=== PATIENT | male | born 1965 | race African-American/Black ===

== ENCOUNTER 2022-11-27 20:00 | Emergency (ER) | payer OTHER ==
--- NOTE | 2022-11-27 20:06 | ED ---
Wound/Laceration HPI - General Source: patient, RN notes reviewed Mode of arrival: ambulatory Limitations: no limitations <Marquita Benitez - Last Filed: 11/27/22 20:04> <Wenceslao Garcia - Last Filed: 11/27/22 22:11> - General Chief Complaint: Wound/Laceration Stated Complaint: [facility] Time Seen by Provider: 11/27/22 20:03 - History of Present Illness Initial Comments: This is a 57 year old male who presents to the emergency department for a laceration to his left hand. States that he injured this on a machine at work earlier today. Unsure when his last tetanus vaccine was. (Marquita Benitez) Dictation was produced using [employer] dictation software. please excuse any grammatical, word or spelling errors. 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 He was using a device called a bun cutter. When he is using this device he accidentally cut his medial dorsal hand. Patient does not know when his last tetanus update was. Denies any dysfunction to his fingers. The ROS documented in this emergency department record has been reviewed and confirmed by me. Those systems with pertinent positive or negative responses have been documented in the HPI. All other systems are other negative and/or noncontributory. (Wenceslao Garcia) - Related Data Previous Rx's Medication Instructions Recorded Cephalexin [Keflex] 500 mg PO Q6HR 5 Days #20 cap 11/27/22 Allergies Allergy/AdvReac Type Severity Reaction Status Date / Time No Known Allergies Allergy Verified 11/27/22 20:07 Review of Systems ROS Other: All systems not noted in ROS Statement are negative. <Marquita Benitez - Last Filed: 11/27/22 20:04> ROS Other: All systems not noted in ROS Statement are negative. <Wenceslao Garcia - Last Filed: 11/27/22 22:11> ROS Statement: Those systems with pertinent positive or pertinent negative responses have been documented in the HPI. General Exam <Marquita Benitez - Last Filed: 11/27/22 20:04> <Wenceslao Garcia - Last Filed: 11/27/22 22:11> - General Exam Comments Initial Comments: Visual Physical Exam Vital signs reviewed General: Well-appearing, nontoxic, no acute distress. Head: Normocephalic, atraumatic Eyes: PERRLA, EOMI ENT: Airway patent Chest: Nonlabored breathing Skin: No visual rash, normal skin tone Neuro: Alert and oriented 3 Musculoskeletal: No gross abnormalities I performed the QuickNote portion of this chart. Signed Marquita Benitez PA-C. (Marquita Benitez) PHYSICAL EXAM: General Impression: Alert and oriented x3, not in acute distress HEENT: Normocephalic atraumatic, extra-ocular movements intact, pupils equal and reactive to light bilaterally, mucous membranes moist. Cardiovascular: Heart regular rate and rhythm Chest: Able to complete full sentences, no retractions, no tachypnea Motor: no focal deficits noted Neurological: CN II-XII grossly intact, no focal motor or sensory deficits noted Skin: Intact with no visualized rashes Psych: Normal affect and mood Left hand: 4 x 4 area laceration. Wound edges do not approximate very well. Exposed extensor tendon. Finger function is intact. (Wenceslao Garcia) Course Vital Signs 11/27/22 20:04 Temperature 97.9 F Pulse Rate 64 Respiratory 20 Rate Blood Pressure 173/118 O2 Sat by Pulse 100 Oximetry Medical Decision Making <Wenceslao Garcia - Last Filed: 11/27/22 22:11> - Medical Decision Making Was pt. sent in by a medical professional or institution ([facility], PULMONOLOGY PHYSICIAN, urgent care, hospital, or detention...) When possible be specific @ -No Did you speak to anyone other than the patient for history (EMS, parent, family, police, friend...)? What history was obtained from this source @ -No Did you review nursing and triage notes (agree or disagree)? Why? @ -I reviewed and agree with nursing and triage notes Were old charts reviewed (outside hosp., previous admission, EMS record, old EKG, old radiological studies, urgent care reports/EKG's, detention records)? Report findings @ -No old charts were reviewed Differential Diagnosis (chest pain, altered mental status, abdominal pain women, abdominal pain men, vaginal bleeding, musculoskeletal, weakness, fever, dyspnea, syncope, headache, dizziness, GI bleed, back pain, seizure, CVA, palpatations, mental health)? @ -not applicable EKG interpreted by me (3pts min.). @ -None done X-rays interpreted by me (1pt min.). @ -X-ray of the hand shows no occult fractures fractures CT interpreted by me (1pt min.). @ -None done U/S interpreted by me (1pt. min.). @ -None done What testing was considered but not performed or refused? (CT, X-rays, U/S, labs)? Why? @ -None What meds were considered but not given or refused? Why? @ -None Did you discuss the management of the patient with other professionals (professionals i.e. , PA, PULMONOLOGY PHYSICIAN, lab, RT, psych nurse, social work nurse, neurobiologist, teacher, transportation officer, showcase maker)? Give summary @ -Case discussed with the branch of orthopedic surgery states that patient can be seen in hand clinic on . Was smoking cessation discussed for >3mins.? @ -No Was critical care preformed (if so, how long)? @ -No Were there social determinants of health that impacted care today? How? (Homelessness, low income, unemployed, alcoholism, drug addiction, transportation, low edu. Level, literacy, decrease access to med. care, fci, rehab)? @ -No Was there de-escalation of care discussed even if they declined (Discuss DNR or withdrawal of care, Hospice)? DNR status @ -No What co-morbidities impacted this encounter? (DM, HTN, Smoking, COPD, CAD, Cancer, CVA, ARF, Chemo, Hep., AIDS, mental health diagnosis, sleep apnea, morbid obesity)? @ -None Was patient admitted / discharged? Hospital course, mention meds given and route, prescriptions, significant lab abnormalities, going to OR and other pertinent info. @ -57-year-old male presents with laceration to the left hand. Wound was relatively large. Suture repair would put significant tension over the fifth MCP joint which may inhibit fifth digit flexion. Plan care options were discussed with patient. He is given option for suture repair which the benefits would be wound closure decrease risk of infection however risk would be decreased function at the fifth MCP joint. Second option of [facility] placement with outpatient follow-up with hand specialist for wound care and possible plastic surgery referral. Patient opted for [facility] placement. Patient wound was covered with Gelf[facility] patient discharged told to follow up with hand specialist on . tetanus is updated. Patient given prescription for Keflex. Undiagnosed new problem with uncertain prognosis? @ -No Drug Therapy requiring intensive monitoring for toxicity (Heparin, Nitro, Insulin, Cardizem)? @ -No Were any procedures done? @ -No Diagnosis/symptom? Acute, or Chronic, or Acute on Chronic? Uncomplicated (without systemic symptoms) or Complicated (systemic symptoms)? @ -Left hand laceration Side effects of treatment? @ -No Exacerbation, Progression, or Severe Exacerbation? @ -No Poses a threat to life or bodily function? How? (Chest pain, [place], [place], pneumonia, PE, COPD, DKA, ARF, appy, cholecystitis, CVA, Diverticulitis, Homicidal, Suicidal, threat to staff... and all critical care pts) @ -yes (Wenceslao Garcia) Disposition <Marquita Benitez - Last Filed: 11/27/22 20:04> Is patient prescribed a controlled substance at d/c from ED?: No Time of Disposition: 22:11 <Wenceslao Garcia - Last Filed: 11/27/22 22:11> Clinical Impression: Laceration Disposition: HOME SELF-CARE Condition: Fair Instructions (If sedation given, give patient instructions): Laceration (ED) Prescriptions: Cephalexin [Keflex] 500 mg PO Q6HR 5 Days #20 cap Referrals: Vivek Adamson DO [Doctor of Osteopathic Medicine] - 1-2 days
[2022-11-27 20:07] VITALS: TEMP 97.9
[2022-11-27] MEDS ORDERED: LIDOCAINE 1% INJ 10MG/ML (20 ML MDV) SQ ONE (21:36)
[2022-11-27] MEDS ORDERED: DIPH,PERTUS(ACELL)TETVAC-LF 0.5 ML VIAL IM ONE (21:46)
[2022-11-27] MEDS ORDERED: GELATIN SPONGE,ABSORB (SMALL) 1 EACH SPONGE TOPICAL STA (21:46)
[2022-11-27] MEDS ORDERED: CEPHALEXIN 500MG STARTER PACK 4 CAP BTL PO STA (22:11)
[2022-11-27 22:27] VITALS: BP 169/96; PULSE 75; RESP 18
--- NOTE | 2022-11-27 22:44 | XR ---
EXAM: XR Left Hand Complete, 3 or More Views CLINICAL HISTORY: ITS.REASON XR Reason: lac TECHNIQUE: Frontal, lateral and oblique views of the left hand. COMPARISON: No relevant prior studies available. FINDINGS: Bones/joints: Unremarkable. No acute fracture. No dislocation. Soft tissues: Unremarkable. No radiopaque foreign body. IMPRESSION: Normal left hand x-rays.
== END 2022-11-27 22:22 | disposition home or self-care (01) ==
LOC: EC 20:00
DX: S61.412A Laceration without foreign body of left hand, initial encounter (principal); Z23 Encounter for immunization; W31.9XXA Contact with unspecified machinery, initial encounter
CPT/HCPCS: 12001; 90471; 90715; 99283